=== PATIENT | female | born 1950 | race Caucasian/White ===

== ENCOUNTER 2021-07-03 06:43 | Outpatient (REF) | payer MEDICARE, SELFPAY ==
[2021-07-03 07:21] LABS: Abs Immature Grans 0.04 10^3/uL (0.0-0.06); Absolute Basophil Count 0.05 10^3/uL (0.0-0.2); Absolute Eosinophil Count 0.13 10^3/uL (0.0-0.7); Absolute Lymphocyte Count 1.82 10^3/uL (1.2-3.4); Absolute Monocyte Count 0.91 10^3/uL (0.1-0.8); Absolute Neutrophil Count 5.77 10^3/uL (1.2-6.7); Basophils % 0.6; Eosinophils % 1.5; HCT 45.1 % (36.0-46.0); HGB 14.1 g/dL (11.2-15.7); Immature Grans % 0.5; Lymphocytes % 20.9; MCH 28.9 pg (27.0-33.0); MCHC 31.3 % (32.0-36.0); MCV 92.4 fL (80-95); MPV 11.1 fL (8.0-11.0); Monocytes % 10.4; Neutrophils % 66.1; Platelet Count 239 10^3/uL (130-400); RBC 4.88 10^6/uL (3.93-5.22); RDW 13.9 % (11.7-14.6); RDW-SD 47.6 fL; WBC 8.72 10^3/uL (4.4-10.8)
[2021-07-03 08:15] LABS: ALT 24 U/L (14-59); AST 9 U/L (15-37); Alkaline Phosphatase 77 U/L (46-116); Anion Gap 6.1 mmol/L (3-11); BUN 20 mg/dL (7-18); Bilirubin, Total 0.7 mg/dL (0.2-1.0); CO2 31.9 mmol/L (21.0-32.0); CREATININE 0.9 mg/dL (0.55-1.02); Calculated LDL 90 mg/dL (<100); Chloride 105 mmol/L (98-107); Cholesterol 169 mg/dL (<200); Glucose 91 mg/dL (74-106); HDL Cholesterol 61 mg/dL (40-60); Potassium 4.3 mmol/L (3.5-5.1); Sodium 143 mmol/L (136-145); Triglyceride 92 mg/dL (<150)
== END 2021-07-03 06:44 | disposition home or self-care (01) ==
LOC: LBO 06:43
PROVIDERS: PCP Family Medicine; Visit Provider Family Medicine
DX: E78.5 Hyperlipidemia, unspecified (principal); I10 Essential (primary) hypertension; M17.11 Unilateral primary osteoarthritis, right knee; Z79.899 Other long term (current) drug therapy
CPT/HCPCS: 36415; 80053; 80061; 85025